=== PATIENT | female | born 1960 | race Caucasian/White ===

== ENCOUNTER 2017-09-20 16:10 | Emergency (ER) | payer OTHER ==
[~2017-09-20] VITALS: Ht 165.1 cm; Wt 95.3 kg
[~2017-09-20 16:10] MED LIST: NATURE S BLEND PO; OMEPRAZOLE20 MG PO; PROGESTERONE100 M1 PO; VIVELLE-DO0.1 MG/24 TD
--- OUTSIDE RECORDS SUMMARY | 2017-09-20 16:29 | External Medical Summary Rpt | CCD ---
Author Author MARISELA Address Unknown Phone Purpose Continuity of Care Document - through 2016
--- OUTSIDE RECORDS SUMMARY | 2017-09-20 16:29 | External Medical Summary Rpt | CCD ---
Author Author MARISELA Address Unknown Phone [email or web address] Purpose Continuity of Care Document - through 2016
--- OUTSIDE RECORDS SUMMARY | 2017-09-20 16:29 | External Medical Summary Rpt ---
Author Author YAN [facility] Organization [facility] Address Unknown Phone Unavailable Care Team Providers Care Picking Crew Supervisor Name Role Phone Job BERRY PCP [phone] Encounter YAN GONZALEZ [id number] Date(s): 07/17/16 - 10/02/16 [facility] [address] 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 MAMMOGRAM FOR MALIGNANT NEOPLASM OF BREAST Vital Signs No data available for this section Problem List No data available for this section Allergies, Adverse Reactions, Alerts Substance Reaction Severity Status penicillins Active sulfa drugs Active Medications No data available for this section Results No data available for this section Immunizations No data available for this section Procedures No data available for this section Social History No data available for this section Assessment and Plan No data available for this section Hospital Discharge Instructions No data available for this section
--- OUTSIDE RECORDS SUMMARY | 2017-09-20 16:29 | External Medical Summary Rpt | CCD ---
Author Author [facility] Address Unknown Phone Unavailable Purpose Continuity of Care Document - through 2016
--- OUTSIDE RECORDS SUMMARY | 2017-09-20 16:29 | External Medical Summary Rpt ---
Author Author YAN [facility] Organization [facility] Address Unknown Phone Unavailable Care Team Providers Care Wardsperson Name Role Phone Job BERRY PCP [phone] Encounter YAN GONZALEZ [id number] Date(s): 07/17/16 - 10/02/16 [facility] [address] [place] [address]- Discharge Disposition: OP Self Care or Home [...]
--- OUTSIDE RECORDS SUMMARY | 2017-09-20 16:31 | External Medical Summary Rpt | CCD ---
Demographics Preferred Language Vietnamese Marital Status Unknown Restorationism Affiliation Unknown Race Unknown Ethnic Group Unknown Author Author , MARISELA DELGADO Address Unknown Phone Immunization Unable to retrieve immunization data due to connection failure with Immunization Registry. Please try again later.
--- OUTSIDE RECORDS SUMMARY | 2017-09-20 16:31 | External Medical Summary Rpt ---
Author Author [employer] [employer], [employer] [facility] [employer] Address Unknown Phone Unavailable
--- OUTSIDE RECORDS SUMMARY | 2017-09-20 16:31 | External Medical Summary Rpt | CCD ---
Demographics Preferred Language Armenian Marital Status Unknown Druze Affiliation Unknown Race Unknown Ethnic Group Unknown Author Author , MARISELA DELGADO Address Unknown Phone Immunization Unable to retrieve immunization data due to connection failure with Immunization Registry. Please try again later.
--- NOTE | 2017-09-20 17:04 | Emergency Room Report ---
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 N Clinical Suspician of Infection? N Mental Status: 1 - Regular (Normal Baseline) Sepsis Risk:Low Sepsis Risk Have you (or family members/close friends) recently traveled outside the [place]? N If Yes, where/when: Have you had exposure to infectious disease within the past month? N TB? Other? Specify: Fish hook to right cheek; no bleeding; does not go through and through. No numbness. ALLERGIES Coded Allergies: Penicillins (Intermediate, I-RASH 11/01/16) Sulfa (Sulfonamide Antibiotics) (Intermediate, I-HIVES 11/01/16) Home Medications Reported Medications Estradiol (Vivelle-Dot) 0.075 MG TD TWICE WEEKLY Progesterone, Micronized (Progesterone) 100 MG PO DAILY Omeprazole (Omeprazole 20MG) 20 MG PO DAILY CALCIUM CIT MALATE/VITAMIN D3 (Calcium Citrate Malate With D) 1 TAB PO DAILY History Medical History General CAD? No Angina: No IN: No Hypertension? No Hyperlipidemia? No CHF? No DVT? No PE? No COPD? No Asthma? No Anemia? No GERD? Yes Gastric ulcers? No GI Bleed? No Hernia? Yes Thyroid Problems? No Hypothyroidism? No CVA? No Seizures? No Diabetes? No Renal Insuffiency? No End Stage Renal Disease? No UTI? Yes Stones? No BPH? No GB Disease: No Nephritic Syndrome? No Asplenia? No Hepatitis? No Sickle Cell Disease? No Arthritis? Yes Migraines? No Cataracts? No Glaucoma? No MRSA? No HIV? No TB? No Anxiety? No Depression? No Cancer? No More? 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 Cheek is mobile and sensate; the sarath is attached about two mm past the sarath, based on palpation. Neck normal inspection, non-tender, supple, full range of motion Respiratory Status No: respiratory distress. 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 No Results/Orders Current Medication Orders Sig/Stefani Start time Last Medication Dose Route Stop Time Status Admin Multi-Ingredient 1 UDP ONCE ONE 09/20 1700 AC 09/20 Ointment TP 09/20 170 1657 Multi-Ingredient 0 .STK-MED ONE 09/20 1654 DC Ointment TP Diphtheria/Pertussis/ 0 .STK-MED ONE 09/20 1631 DC Tetanus Vacc IM Diphtheria/Pertussis/ 0.5 ML ONCE ONE 09/20 1630 DC 09/20 Tetanus Vacc IM 09/20 163 1635 Lidocaine HCl 0 .STK-MED ONE 09/20 1615 DC .ROUTE Procedures FB Removal (excluding Eyes) FB Removal Risks/benefits discussed with pt/guardian? Yes Location/Suspected object fish hook right cheek Anesthesia Lidocaine 1% Risk of retained FB explained to pt/guardian? No (FB removed whole) Progress Lido w/o epi infiltrated; using an 18 gauge hollow bore needle, I was able to retract the entry wound opening then retract the sarath whole. Recheck revealed scant drop of blood, no visible or palpable debris. Antibiotic ointment and bandage applied. Opening is approximately 2 mm wide and sutures not indicated. Departure Departure Time of Disposition 1656 Disposition DC Home or Self Care(routine) Clinical Impression Primary Impression: Fish hook injury of cheek Qualifiers: Encounter type: initial encounter Qualified Code: S09.93XA - Unspecified injury of face, initial encounter Secondary Impressions: Fishing hook foreign body Qualifiers: Encounter type: initial encounter Qualified Code: W45.8XXA - Other foreign body or object entering through skin, initial encounter Condition STABLE Referrals Brandyn Horton MD (Family) Additional Instructions Wash wound twice daily, watch for infection, see Dr. Horton in one to three days for recheck. Discharge Counseling Counseled pt/family regarding diagnosis, home care, follow up needs ED Critical Care Critical Care No at [id number]
--- NOTE | 2017-09-20 17:04 | Emergency Room Report ---
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 N Clinical Suspician of Infection? N Mental Status: 1 - Regular (Normal Baseline) Sepsis Risk:Low Sepsis Risk Have you (or family members/close friends) recently traveled outside the [place]? N If Yes, where/when: Have you had exposure to infectious disease within the past month? N TB? Other? Specify: Fish hook to right cheek; no bleeding; does not go through and through. No numbness. ALLERGIES Coded Allergies: Penicillins (Intermediate, I-RASH 11/01/16) Sulfa (Sulfonamide Antibiotics) (Intermediate, I-HIVES 11/01/16) Home Medications Reported Medications Estradiol (Vivelle-Dot) 0.075 MG TD TWICE WEEKLY Progesterone, Micronized (Progesterone) 100 MG PO DAILY Omeprazole (Omeprazole 20MG) 20 MG PO DAILY CALCIUM CIT MALATE/VITAMIN D3 (Calcium Citrate Malate With D) 1 TAB PO DAILY History Medical History General CAD? No Angina: No MD: No Hypertension? No Hyperlipidemia? No CHF? No DVT? No PE? No COPD? No Asthma? No Anemia? No GERD? Yes Gastric ulcers? No GI Bleed? No Hernia? Yes Thyroid Problems? No Hypothyroidism? No CVA? No Seizures? No Diabetes? No Renal Insuffiency? No End Stage Renal Disease? No UTI? Yes Stones? No BPH? No GB Disease: No Nephritic Syndrome? No Asplenia? No Hepatitis? No Sickle Cell Disease? No Arthritis? Yes Migraines? No Cataracts? No Glaucoma? No MRSA? No HIV? No TB? No Anxiety? No Depression? No Cancer? No More? 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 Cheek is mobile and sensate; the sarath is attached about two mm past the sarath, based on palpation. Neck normal inspection, non-tender, supple, full range of motion Respiratory Status No: respiratory distress. 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 No Results/Orders Current Medication Orders Sig/Stefani Start time Last Medication Dose Route Stop Time Status Admin Multi-Ingredient 1 UDP ONCE ONE 09/20 1700 AC 09/20 Ointment TP 09/20 170 1657 Multi-Ingredient 0 .STK-MED ONE 09/20 1654 DC Ointment TP Diphtheria/Pertussis/ 0 .STK-MED ONE 09/20 1631 DC Tetanus Vacc IM Diphtheria/Pertussis/ 0.5 ML ONCE ONE 09/20 1630 DC 09/20 Tetanus Vacc IM 09/20 163 1635 Lidocaine HCl 0 .STK-MED ONE 09/20 1615 DC .ROUTE Procedures FB Removal (excluding Eyes) FB Removal Risks/benefits discussed with pt/guardian? Yes Location/Suspected object fish hook right cheek Anesthesia Lidocaine 1% Risk of retained FB explained to pt/guardian? No (FB removed whole) Progress Lido w/o epi infiltrated; using an 18 gauge hollow bore needle, I was able to retract the entry wound opening then retract the sarath whole. Recheck revealed scant drop of blood, no visible or palpable debris. Antibiotic ointment and bandage applied. Opening is approximately 2 mm wide and sutures not indicated. Departure Departure Time of Disposition 1656 Disposition DC Home or Self Care(routine) Clinical Impression Primary Impression: Fish hook injury of cheek Qualifiers: Encounter type: initial encounter Qualified Code: S09.93XA - Unspecified injury of face, initial encounter Secondary Impressions: Fishing hook foreign body Qualifiers: Encounter type: initial encounter Qualified Code: W45.8XXA - Other foreign body or object entering through skin, initial encounter Condition STABLE Referrals Brandyn Horton MD (Family) Additional Instructions Wash wound twice daily, watch for infection, see Dr. Horton in one to three days for recheck. Discharge Counseling Counseled pt/family regarding diagnosis, home care, follow up needs ED Critical Care Critical Care No at [id number]
[2017-09-20 17:06] VITALS: BP 124/82
== END 2017-09-20 17:06 | disposition home or self-care (01) ==
LOC: ER 16:10
PROC: 0HC1XZZ Extirpation of Matter from Face Skin, External Approach (ICD-10-PCS; principal; 2017-09-20)
DX: S09.93XA Unspecified injury of face, initial encounter (principal); W45.8XXA Other foreign body or object entering through skin, initial encounter; Z88.0 Allergy status to penicillin; Z88.2 Allergy status to sulfonamides; K21.9 Gastro-esophageal reflux disease without esophagitis; Z23 Encounter for immunization